=== PATIENT | female | born 1950 | race Caucasian/White ===

== ENCOUNTER → 2019-09-19 | Outpatient (CLI) | payer MEDICARE | LOC: COL.RAD 12:48 | DX: R91.8 Other nonspecific abnormal finding of lung field (principal) ==

== ENCOUNTER → 2019-10-22 | Outpatient (CLI) | payer MEDICARE | LOC: ZCOL.LAB 17:13 | DX: Z20.828 Contact with and (suspected) exposure to other viral communicable diseases (principal) ==

== ENCOUNTER → 2020-04-30 | Outpatient (CLI) | payer MEDICARE | LOC: COL.RAD 09:44 | DX: K57.30 Diverticulosis of large intestine without perforation or abscess without bleeding (principal); Z96.643 Presence of artificial hip joint, bilateral; Z90.710 Acquired absence of both cervix and uterus; Z96.82 Presence of neurostimulator | CPT/HCPCS: Q9967 ==

== ENCOUNTER → 2021-04-23 | Outpatient (CLI) | payer MEDICARE | LOC: MC.RAD 11:37 | DX: Z12.31 Encounter for screening mammogram for malignant neoplasm of breast (principal) ==

== ENCOUNTER → 2023-06-17 | Outpatient (CLI) | payer MEDICARE | LOC: MC.RAD 09:07 | DX: Z12.31 Encounter for screening mammogram for malignant neoplasm of breast (principal) ==